=== PATIENT | female | born 1970 | race Caucasian/White ===

== ENCOUNTER 2016-08-29 09:34 | Outpatient (CLI) | payer MEDICAID ==
[2016-08-29 19:18] LABS: BASOPHILS # (AUTO) 0.1 10^3/uL (0.0-0.1); BASOPHILS % (AUTO) 0.9 %; EOSINOPHILS # (AUTO) 0.1 10^3/uL (0.0-0.7); EOSINOPHILS % (AUTO) 1.1 %; HCT - HEMATOCRIT 38.2 % (37.0-47.0); HGB - HEMOGLOBIN 12.5 g/dL (12.0-16.0); LYMPHOCYTES # (AUTO) 1.2 10^3/uL (1.5-3.5); LYMPHOCYTES % (AUTO) 18.2 %; MEAN CORPUSCULAR HEMOGLOBIN 31.4 pg (27.0-31.0); MEAN CORPUSCULAR HGB CONC 32.7 g/dL (32.0-36.0); MEAN PLATELET VOLUME 8.2 fL (7.9-10.8); MONOCYTES # (AUTO) 0.4 10^3/uL (0.0-1.0); MONOCYTES % (AUTO) 6.2 %; NEUTROPHILS # (AUTO) 4.7 10^3/uL (1.5-6.6); NEUTROPHILS % (AUTO) 73.6 %; NUCLEATED RED BLOOD CELLS AUTO 0.1 /100WBC; RED BLOOD COUNT 3.98 10^6/uL (4.20-5.40); RED CELL DISTRIBUTION WIDTH 13.6 % (12.0-15.0); UNCORRECTED WHITE BLOOD COUNT 6.3 x10^3/uL; WHITE BLOOD COUNT 6.3 x10^3/uL (4.8-10.8)
[2016-08-29 19:33] LABS: ALBUMIN/GLOBULIN RATIO 1.7 (1.0-2.2); BILIRUBIN,TOTAL 0.8 mg/dL (0.2-1.0); BUN - BLOOD UREA NITROGEN 15 mg/dL (6-20); CALCIUM 8.9 mg/dL (8.5-10.3); CARBON DIOXIDE - CO2 27 mmol/L (21-32); CHLORIDE 103 mmol/L (101-111); CHOL/HDL RATIO 3.3 (<4.4); CHOLESTEROL 187 mg/dL; CREATININE 0.8 mg/dL (0.4-1.0); GFR - MDRD 77 (>89); GLUCOSE 82 mg/dL (70-100); HDL CHOLESTEROL 56 mg/dL; LDL/HDL RATIO 1.9 (<4.4); POTASSIUM 4.1 mmol/L (3.5-5.0); SODIUM 137 mmol/L (135-145); TOTAL PROTEIN 6.9 g/dL (6.7-8.2); TRIGLYCERIDES 120 mg/dL; VLDL CHOLESTEROL 24 mg/dL
[2016-08-29 20:04] LABS: THYROID STIMULATING HORMONE 0.59 uIU/mL (0.34-5.60)
== END 2016-08-29 09:35 | disposition home or self-care (01) ==
LOC: LAB.WCP 09:34
PROVIDERS: ATTEND Family Medicine
DX: Z00.00 Encounter for general adult medical examination without abnormal findings (principal); L65.9 Nonscarring hair loss, unspecified
CPT/HCPCS: 36415; 80053; 80061; 84439; 84443; 84481; 84482; 85025

== ENCOUNTER 2016-10-29 15:10 | Outpatient (CLI) | payer MEDICAID | END 2016-10-29 15:11 | disposition home or self-care (01) | LOC: LAB.R 15:10 | PROVIDERS: ATTEND Family Medicine | DX: N76.0 Acute vaginitis (principal) | CPT/HCPCS: 87480; 87510; 87660 ==

== ENCOUNTER 2017-10-18 14:23 | Emergency (ER) | payer SELFPAY ==
--- NOTE | 2017-10-18 15:00 | ED Physician Documentation ---
PD HPI NVD - Stated complaint Stated Complaint: VOMIT/GOKUL - Chief complaint Chief Complaint: Abd Pain - History obtained from History obtained from: Patient - History of Present Illness Timing - onset: Today (about 4 am) Timing - duration: Hours (10) Timing - details: Abrupt onset, Still present Associated symptoms: Abdominal pain, Loss of appetite, Other (some headache, and also vomiting and diarrhea, frequently.). No: Fever, Near syncope / syncope Improved by: No: Eating Worsened by: Eating (vomiting with attempts at oral fluids.) Similar symptoms before: Has not had sx before Recently seen: Not recently seen Review of Systems Constitutional: reports: Myalgias. denies: Fever, Chills Nose: denies: Rhinorrhea / runny nose, Congestion Throat: denies: Sore throat Cardiac: denies: Chest pain / pressure Respiratory: denies: Dyspnea, Cough GI: reports: Abdominal Pain, Nausea, Vomiting, Diarrhea. denies: Hematemesis, Bloody / black stool : denies: Dysuria, Frequency Neurologic: reports: Generalized weakness. denies: Near syncope, Altered mental status PD PAST MEDICAL HISTORY - Past Medical History Cardiovascular: None Respiratory: None Neuro: None Endocrine/Autoimmune: None GI: None - Present Medications Home Medications: Ambulatory Orders Medication Instructions Recorded Confirmed Cyclobenzaprine [Flexeril] 10 mg PO TID PRN 10/18/17 10/18/17 Diphenoxylate/Atropine [Lomotil] 1 each PO QID PRN #15 tablet 10/18/17 Ondansetron HCl [Zofran] 4 mg PO Q6H PRN #20 tablet 10/18/17 - Allergies Allergies/Adverse Reactions: Allergies Allergy/AdvReac Type Severity Reaction Status Date / Time No Known Drug Allergies Allergy Verified 10/18/17 14:39 PD ED PE NORMAL - Vitals Vital signs reviewed: Yes - General General: Alert and oriented X 3, Well developed/nourished, Other (having active vomiting in ED. Pain upper abd. ) - HEENT HEENT: PERRL, Pharynx benign - Neck Neck: Supple, no meningeal sign, No adenopathy - Cardiac Cardiac: RRR, No murmur - Respiratory Respiratory: Clear bilaterally - Abdomen Abdomen: Normal bowel sounds, Soft, Non distended, No organomegaly, Other ( tender upper abd midline and to right. No percussion nor rebound tenderness. ) - Female Female : Deferred - Rectal Rectal: Deferred - Back Back: No CVA TTP - Derm Derm: Normal color, Warm and dry Results - Vitals Vitals: Oxygen O2 Source Room air - Labs Labs: Laboratory Tests 10/18/17 10/18/17 15:35 15:35 WBC 18.1 H RBC 4.30 Hgb 13.6 Hct 41.0 MCV 95.3 MCH 31.6 H MCHC 33.2 RDW 13.5 Plt Count 346 MPV 7.6 L Neut # (Auto) 16.4 H Lymph # (Auto) 0.8 L [place] # (Auto) 0.9 Eos # (Auto) 0.0 Baso # (Auto) 0.0 Absolute Nucleated RBC 0.00 Nucleated RBC % 0.0 Sodium 135 Potassium 2.7 L Chloride 100 L Carbon Dioxide 22 Anion Gap 13.0 BUN 15 Creatinine 0.6 Estimated GFR (MDRD) 107 Glucose 188 H Calcium 9.0 Total Bilirubin 0.6 AST 25 ALT 19 Alkaline Phosphatase 50 Total Protein 8.1 Albumin 4.6 Globulin 3.5 Albumin/Globulin Ratio 1.3 Lipase 18 L - Rads (name of study) RUQ abd U/S Radiology: Prelim report reviewed (normal) PD MEDICAL DECISION MAKING - ED course Complexity details: reviewed results, re-evaluated patient (feels better with fluids and meds. Potassium replaced orally and IV. ), considered differential, d /w patient - Sepsis Event Vital Signs: Oxygen O2 Source Room air Departure - Departure Disposition: 01 Home, Self Care Clinical Impression: Nausea vomiting and diarrhea, Hypokalemia Abdominal pain Qualifiers: Abdominal location: upper abdomen, unspecified Qualified Code(s): R10.10 - Upper abdominal pain, unspecified Condition: Stable Record reviewed to determine appropriate education?: Yes Instructions: ED Food Poison Or Gastroenteritis Prescriptions: Diphenoxylate/Atropine [Lomotil] 1 each PO QID PRN #15 tablet PRN Reason: Diarrhea Ondansetron HCl [Zofran] 4 mg PO Q6H PRN #20 tablet PRN Reason: Nausea / Vomiting Comments: This sounds likely to be either food related or stomach virus. Typically this will be very symptomatic for 12-24 hours and then improved. Hopefully will be past the worst of it. Use ondansetron if needed for nausea. Lomotil if needed for diarrhea. Your blood tests and ultrasound were good with regard to gallbladder pancreas and liver. From the vomiting and diarrhea you did have a low potassium and that can be replenished dietarily over the next few days with return to normal diet. Drink lots of fluids this evening. [place] food initially and progress as able. Recheck if not all better over the next day or 2. Discharge Date/Time: 10/18/17 18:40
[2017-10-18] MEDS ORDERED: MORPHINE 10 MG/ML VIAL IVP STA (15:14)
[2017-10-18] MEDS ORDERED: SODIUM CHLORIDE 0.9% 1,000 ML IV ONE ×2 (15:14→16:54)
[2017-10-18] MEDS ORDERED: KETOROLAC 60 MG/2 ML VIAL IVP STA (15:14)
[2017-10-18] MEDS ORDERED: ONDANSETRON 4 MG/2 ML VIAL IVP STA (15:14)
[2017-10-18] MEDS ORDERED: FAMOTIDINE 20 MG/50 ML 50 ML IV ONE (15:16)
[2017-10-18 15:51] LABS: BASOPHILS % (AUTO) 0.2 %; HGB - HEMOGLOBIN 13.6 g/dL (12.0-16.0); LYMPHOCYTES # (AUTO) 0.8 10^3/uL (1.5-3.5); LYMPHOCYTES % (AUTO) 4.3 %; MEAN CORPUSCULAR HEMOGLOBIN 31.6 pg (27.0-31.0); MEAN CORPUSCULAR HGB CONC 33.2 g/dL (32.0-36.0); MEAN CORPUSCULAR VOLUME 95.3 fL (81.0-99.0); MEAN PLATELET VOLUME 7.6 fL (7.9-10.8); MONOCYTES # (AUTO) 0.9 10^3/uL (0.0-1.0); MONOCYTES % (AUTO) 4.9 %; NEUTROPHILS # (AUTO) 16.4 10^3/uL (1.5-6.6); NEUTROPHILS % (AUTO) 90.6 %; PLT - PLATELET COUNT 346 10^3/uL (130-450); RED CELL DISTRIBUTION WIDTH 13.5 % (12.0-15.0); WHITE BLOOD COUNT 18.1 x10^3/uL (4.8-10.8)
[2017-10-18 16:15] LABS: ALBUMIN 4.6 g/dL (3.2-5.5); ALBUMIN/GLOBULIN RATIO 1.3 (1.0-2.2); BILIRUBIN,TOTAL 0.6 mg/dL (0.2-1.0); CREATININE 0.6 mg/dL (0.4-1.0); TOTAL PROTEIN 8.1 g/dL (6.7-8.2)
--- NOTE | 2017-10-18 16:40 | Ultrasound Report ---
Procedure Date: 10/18/2017 Accession Number: [id number] / [id number] Procedure: US - Abdomen Limited CPT Code: FULL RESULT: EXAM: ABDOMEN ULTRASOUND LIMITED, RUQ EXAM DATE: 10/18/2017 04:13 PM. CLINICAL HISTORY: Upper abdominal pain and vomiting. Tender right upper quadrant. COMPARISON: 09/17/2010. TECHNIQUE: Real-time scanning was performed with static images obtained. FINDINGS: Liver: Normal parenchymal echotexture. Main portal vein flow: Hepatopetal. Gallbladder: Normal. No stones, wall thickening, or sonographic Cruz's sign. Biliary System: CBD measures 3 mm. No intrahepatic or extrahepatic ductal dilatation. Pancreas: Unremarkable as visualized. Right Kidney: 9.7 cm in length. Normal parenchymal echotexture. Intrarenal in the upper pole measuring 0.7 cm. No hydronephrosis. IMPRESSION: 1. 0.7 cm nonobstructive right intrarenal calculus. 2. Otherwise unremarkable right upper quadrant ultrasound. Specifically, no cholelithiasis or sonographic evidence for acute cholecystitis. [facility]
[2017-10-18] MEDS ORDERED: POTASSIUM CHLOR 10 MEQ/100 ML 10 MEQ/100 ML BAG IV ONE (16:54)
[2017-10-18] MEDS ORDERED: POTASSIUM BICARB 25 MEQ TABLET PO STA (16:54)
[2017-10-18] MEDS ORDERED: ONDANSETRON ODT 4 MG Prepack 2 TL PRN (17:45)
[2017-10-18] MEDS ORDERED: DIPHENOX/ATROPINE 2.5/0.025 MG TABLET PO STA (17:45)
[2017-10-18 18:43] VITALS: BP 135/99
== END 2017-10-18 18:40 | disposition home or self-care (01) ==
LOC: ED 14:23
DX: R11.2 Nausea with vomiting, unspecified (principal); R19.7 Diarrhea, unspecified; E87.6 Hypokalemia; R10.11 Right upper quadrant pain
CPT/HCPCS: 36415; 76705; 80053; 83690; 85025; 96365; 96367; 96375; 99283; A9270